=== PATIENT | male | born 1990 | race Two or more races ===

== ENCOUNTER 2018-06-02 11:36 | Emergency (ER) | payer BC ==
[~2018-06-02] VITALS: Ht 175.3 cm; Wt 95.0 kg
[2018-06-02 11:42] VITALS: BP 158/90
[2018-06-02] MEDS ORDERED: DEXAMETHASONE 4 MG TABLET ONE (12:26)
[2018-06-02] MEDS ORDERED: ALBUTEROL SULFATE 2.5 MG/3 ML NPPB ONE (12:30)
[2018-06-02] MEDS ORDERED: DEXAMETHASONE 4 MG TABLET PO ONE (12:30)
[2018-06-02] MEDS ORDERED: ALBUTEROL SULFATE 2.5 MG/3 ML ONE (12:39)
== END 2018-06-02 13:37 | disposition home or self-care (01) ==
LOC: ED 13:30
DX: J45.31 Mild persistent asthma with (acute) exacerbation (principal); B34.9 Viral infection, unspecified
CPT/HCPCS: 71046; 93005; 94640; 99284; J7613